=== PATIENT | male | born 1970 | race Caucasian/White ===

== ENCOUNTER 2016-11-20 00:35 | Emergency (ER) | payer OTHER ==
[~2016-11-20] VITALS: Ht 188 cm; Wt 80.7 kg
[~2016-11-20 00:35] MED LIST: ALPRAZOLAM1 MG PO; LEVSIN/SL0.125 MG SL; NEXIUM40 M1 PO; OXYCODONE HYDRO10 M1 PO; OXYCONTIN (MONO40 MG PO; TEMAZEPAM30 MG PO; VALIUM5 M1 PO; ZOFRAN4 M1 SL
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
[2016-11-20] MEDS ORDERED: PERCOCET 10-321 EACH PO (01:58)
[2016-11-20] MEDS ORDERED: VALIUM5 M2 PO (01:58)
[2016-11-20 02:14] VITALS: BP 135/82
== END 2016-11-20 02:15 ==
LOC: ERH 00:35
DX: G89.29 Other chronic pain (principal); M62.838 Other muscle spasm
CPT/HCPCS: 96372; J1885

== ENCOUNTER 2017-01-19 03:37 | Emergency (ER) | payer OTHER ==
[~2017-01-19] VITALS: Ht 188 cm; Wt 79.4 kg
[~2017-01-19 03:37] MED LIST changes: +PERCOCET 10-321 EACH PO; +VALIUM5 M2 PO
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
[2017-01-19] MEDS ORDERED: VALIUM5 M2 PO (04:51)
[2017-01-19 05:30] VITALS: BP 153/94
== END 2017-01-19 05:32 ==
LOC: ERH 03:37
DX: M75.81 Other shoulder lesions, right shoulder (principal)
CPT/HCPCS: 96372; J1885; J3360